=== PATIENT | male | born 1985 | race African-American/Black ===

== ENCOUNTER 2025-03-05 13:39 | Outpatient (CLI) | payer OTHER, SELFPAY ==
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
== END 2025-03-05 13:40 | disposition home or self-care (01) ==
PROVIDERS: PCP Physician Assistant; Visit Provider Physician Assistant
DX: M79.89 Other specified soft tissue disorders (principal); M66.862 Spontaneous rupture of other tendons, left lower leg; S11.93XA Puncture wound without foreign body of unspecified part of neck, initial encounter; W34.00XA Accidental discharge from unspecified firearms or gun, initial encounter
CPT/HCPCS: 72040; 73600; 73721